=== PATIENT | male | born 1995 | race Caucasian/White ===

== ENCOUNTER 2017-05-17 11:48 | Emergency (ER) | payer OTHER, SELFPAY ==
[2017-05-17 12:29] VITALS: O2SAT 97
[2017-05-17] MEDS ORDERED: Pepcid 20 MG VIAL IV ONE ×2 (12:29→12:40)
[2017-05-17] MEDS ORDERED: Sodium Chloride 0.9% 1000 ML 1,000 ML IV STA (12:29)
[2017-05-17] MEDS ORDERED: BENADRYL 50 MG/ML IV ONE (12:29)
[2017-05-17] MEDS ORDERED: Hydromorphone 1 mg/ml Ampule IV ONE (12:29)
--- NOTE | 2017-05-17 12:38 | ERPHSYRPT ---
- History of Present Illness Time Seen by Provider: 05/17/17 12:21 Historian: patient, family (grandmother) Patient Subjective Stated Complaint: HERE FOR ABD PAIN STARTED LAST NIGHT , CHILLS THIS AM , PAIN LOWER TO MID ABD , HAD BM YESTERDAY Triage Nursing Assessment: PT ALERT,ANXIOUS,SKIN W/D.PINK, RESP EASY, PT RUBBING ABD. ABD SOFT ,TENDER TO TOUCH Physician History: CC: abd pain Hx: 21 y/o patient of Dr Addison. He had stomach cramps last night. Chills at 1AM. Worse this AM with nausea, lower abdominal pain. Did not eat breakfast as he felt sick. Normal urination. Maybe some constipation. Last BM yesterday. Hx PUD. Prior pyloric stenosis. Pain moderately severe. All: None Meds: Amoxil for dental Surg: Pyloric stenosis Social: heavy smoker, no work, no alcohol use Timing/Duration: day(s) (1) Severity of Pain-Max: moderate Severity of Pain-Current: moderate Allergies/Adverse Reactions: No Known Drug Allergies Allergy (Verified 05/17/17 12:31) Home Medications: Amoxicillin [Amoxil] 875 mg BID 05/17/17 [History] Hx Tetanus, Diphtheria Vaccination/Date Given: Yes Hx Influenza Vaccination/Date Given: No Hx Pneumococcal Vaccination/Date Given: No Immunizations Up to Date: Yes - Review of Systems Constitutional: Chills, Malaise, Weakness, No Fever Eyes: No Symptoms Ears, Nose, & Throat: No Symptoms Respiratory: No Cough Cardiac: No Chest Pain Abdominal/Gastrointestinal: Abdominal Pain, Nausea, Constipation, No Vomiting, No Diarrhea Genitourinary Symptoms: No Dysuria Musculoskeletal: No Back Pain Skin: No Rash Neurological: No Headache All Other Systems: Reviewed and Negative - Past Medical History Pertinent Past Medical History: Yes Neurological History: No Pertinent History ENT History: No Pertinent History Cardiac History: No Pertinent History Respiratory History: No Pertinent History Endocrine Medical History: No Pertinent History Musculoskeletal History: No Pertinent History GI Medical History: No Pertinent History History: No Pertinent History Psycho-Social History: Anxiety, Depression Male Reproductive Disorders: No Pertinent History Other Medical History: anger - Past Surgical History Past Surgical History: Yes Neuro Surgical History: No Pertinent History Cardiac: No Pertinent History Respiratory: No Pertinent History Gastrointestinal: No Pertinent History Genitourinary: No Pertinent History Musculoskeletal: No Pertinent History Male Surgical History: No Pertinent History Other Surgical History: pyloric stenosis - Social History Smoking Status: Current every day smoker How long have you smoked: 8 Exposure to second hand smoke: Yes Drug Use: none Patient Lives Alone: No - Nursing Vital Signs Nursing Vital Signs: Initial Vital Signs Temperature 97.8 F Temperature Source Oral Pulse Rate 102 Respiratory Rate 20 Blood Pressure [Right Arm] 126/67 Pain Intensity 5 - Physical Exam General Appearance: alert Eye Exam: PERRL/EOMI Ears, Nose, Throat Exam: normal ENT inspection, moist mucous membranes Neck Exam: normal inspection, non-tender, supple Respiratory Exam: normal breath sounds, lungs clear Cardiovascular Exam: regular rate/rhythm, No murmur Gastrointestinal/Abdomen Exam: soft, tenderness (RLQ with guarding), guarding ( RLQ), No distention, No organomegaly Male Genitalia Exam: normal genitalia, No hernia, No testicular tenderness Back Exam: normal inspection, normal range of motion Extremity Exam: normal inspection, normal range of motion Neurologic Exam: alert, oriented x 3, cooperative, community engagement specialist II-XII nml as tested, sensation nml, No motor deficits Skin Exam: warm, dry, No rash SpO2 Interpretation: normal SpO2: 97 Oxygen Delivery: Room Air - Course Nursing assessment & vital signs reviewed: Yes - CT Exams abd/pelvis CT Interpretation: Tele-radiologist Report, No appendicitis Ordered Tests: Active Orders 24 hr Category Date Time Status Clean Catch Urine Specimen STAT Care 05/17/17 12:29 Active IV Insertion STAT Care 05/17/17 12:29 Active NPO (ED) STAT Care 05/17/17 12:29 Active Consult Surgery ROUTINE Cons 05/17/17 13:23 Active ABDOMEN AND PELVIS W CONTRAST [CT] Stat Exams 05/17/17 12:29 Completed CBC W DIFF Stat Lab 05/17/17 12:40 Completed CMP Stat Lab 05/17/17 12:40 Completed LIPASE Stat Lab 05/17/17 12:40 Completed Lactic Acid Stat Lab 05/17/17 12:40 Completed Manual Differential NC Stat Lab 05/17/17 12:40 Completed UA W/RFX UR CULTURE Stat Lab 05/17/17 12:46 Completed Urine Triage Profile Stat Lab 05/17/17 12:46 Completed Medication Summary Discontinued Medications Generic Name Dose Route Start Last Admin Trade Name Freq PRN Reason Stop Dose Admin Diphenhydramine HCl 25 mg 05/17/17 12:29 05/17/17 12:44 Benadryl 50 Mg/Ml IV 05/17/17 12:30 25 mg STAT ONE Administration Diphenhydramine HCl Confirm 05/17/17 12:40 Benadryl 50 Mg/Ml Administered 05/17/17 12:41 Dose 50 mg .ROUTE .STK-MED ONE Famotidine 20 mg 05/17/17 12:29 05/17/17 12:43 Pepcid 20 Mg Vial IV 05/17/17 12:30 20 mg STAT ONE Administration Famotidine Confirm 05/17/17 12:40 Pepcid 20 Mg Vial Administered 05/17/17 12:41 Dose 20 mg IV .STK-MED ONE Hydromorphone HCl 1 mg 05/17/17 12:29 05/17/17 12:44 Hydromorphone 1 Mg/Ml Ampule IV 05/17/17 12:30 1 mg STAT ONE Administration Hydromorphone HCl Confirm 05/17/17 12:40 Hydromorphone 1 Mg/Ml Ampule Administered 05/17/17 12:41 Dose 1 mg .ROUTE .STK-MED ONE Sodium Chloride 1,000 mls @ 999 mls/hr 05/17/17 12:29 05/17/17 12:43 Sodium Chloride 0.9% 1000 Ml IV 05/17/17 13:29 999 mls/hr .Q1H1M STA Administration Sodium Chloride Confirm 05/17/17 12:41 Sodium Chloride 0.9% 1000 Ml Administered 05/17/17 12:42 Dose 1,000 mls @ ud .ROUTE .STK-MED ONE Lab/Rad Data: Laboratory Result Diagrams 05/17/17 12:40 05/17/17 12:40 Laboratory Results 05/17/17 05/17/17 05/17/17 Range/Units 12:46 12:46 12:40 WBC (4.0-10.5) K/mm3 RBC (4.1-5.6) M/mm3 Hgb (12.5-18.0) gm/dl Hct (42-50) % MCV (78-100) fl MCH (26-32) pg MCHC (32-36) g/dl RDW (11.5-14.0) % Plt Count (150-450) K/mm3 MPV (6-9.5) fl Sodium (136-145) mEq/L Potassium (3.5-5.1) mEq/L Chloride (98-107) mEq/L Carbon Dioxide (21-32) mEq/L Anion Gap (5-15) MEQ/L BUN (9-20) mg/dL Creatinine (0.55-1.30) mg/dl Estimated GFR ML/MIN Glucose (70-110) MG/DL Lactic Acid 0.9 (0.4-2.0) Calcium (8.5-10.1) mg/dL Total Bilirubin (0.2-1.0) mg/dL AST (15-37) U/L ALT (12-78) U/L Alkaline Phosphatase (46-116) U/L Serum Total Protein (6.4-8.2) gm/dL Albumin (3.4-5.0) g/dL Lipase (73-393) U/L Ur Collection Type CLEAN CATCH Urine Color YELLOW (YELLOW) Urine Appearance CLEAR (CLEAR) Urine pH 7.0 (5-6) Ur Specific Napoleon 1.005 (1.005-1.025) Urine Protein NEGATIVE (Negative) Urine Ketones NEGATIVE (NEGATIVE) Urine Blood NEGATIVE (0-5) Cristobal/ul Urine Nitrite NEGATIVE (NEGATIVE) Urine Bilirubin NEGATIVE (NEGATIVE) Urine Urobilinogen NORMAL (0-1) mg/dL Ur Leukocyte Esterase NEGATIVE (NEGATIVE) Urine Glucose NEGATIVE (NEGATIVE) mg/dL Urine Opiates Level NEG. (NEGATIVE) Ur Methadone NEG. (NEGATIVE) Urine Barbiturates NEG. (NEGATIVE) Ur Phencyclidine (PCP) NEG. (NEGATIVE) Urine Amphetamine NEG. (NEGATIVE) U Benzodiazepine Level NEG. (NEGATIVE) Urine Cocaine NEG. (NEGATIVE) Urine Marijuana (THC) NEG. (NEGATIVE) Specimen Received [id number] 05/17/17 05/17/17 Range/Units 12:40 12:40 WBC 13.4 H (4.0-10.5) K/mm3 RBC 5.13 (4.1-5.6) M/mm3 Hgb 15.2 (12.5-18.0) gm/dl Hct 44.4 (42-50) % MCV 86.5 (78-100) fl MCH 29.6 (26-32) pg MCHC 34.2 (32-36) g/dl RDW 12.4 (11.5-14.0) % Plt Count 159 (150-450) K/mm3 MPV 10.0 H (6-9.5) fl Sodium 138 (136-145) mEq/L Potassium 3.8 (3.5-5.1) mEq/L Chloride 101 (98-107) mEq/L Carbon Dioxide 26.0 (21-32) mEq/L Anion Gap 15.2 H (5-15) MEQ/L BUN 12 (9-20) mg/dL Creatinine 1.23 (0.55-1.30) mg/dl Estimated GFR > 60 ML/MIN Glucose 97 (70-110) MG/DL Lactic Acid (0.4-2.0) Calcium 10.0 (8.5-10.1) mg/dL Total Bilirubin 0.90 (0.2-1.0) mg/dL AST 13 L (15-37) U/L ALT 14 (12-78) U/L Alkaline Phosphatase 65 (46-116) U/L Serum Total Protein 7.6 (6.4-8.2) gm/dL Albumin 4.4 (3.4-5.0) g/dL Lipase 243 (73-393) U/L Ur Collection Type Urine Color (YELLOW) Urine Appearance (CLEAR) Urine pH (5-6) Ur Specific Napoleon (1.005-1.025) Urine Protein (Negative) Urine Ketones (NEGATIVE) Urine Blood (0-5) Cristobal/ul Urine Nitrite (NEGATIVE) Urine Bilirubin (NEGATIVE) Urine Urobilinogen (0-1) mg/dL Ur Leukocyte Esterase (NEGATIVE) Urine Glucose (NEGATIVE) mg/dL Urine Opiates Level (NEGATIVE) Ur Methadone (NEGATIVE) Urine Barbiturates (NEGATIVE) Ur Phencyclidine (PCP) (NEGATIVE) Urine Amphetamine (NEGATIVE) U Benzodiazepine Level (NEGATIVE) Urine Cocaine (NEGATIVE) Urine Marijuana (THC) (NEGATIVE) Specimen Received - Progress Progress Note: 05/17/17 14:17 Dr Dominguez here to see patient. 05/17/17 14:25 Pt was evaluated by Dr dominguez. He advised release with abd pain instr and return for worsened or changed pain. Will release with instr. Counseled pt/family regarding: lab results, diagnosis, need for follow-up, rad results, smoking cessation - Departure Time of Disposition: 14:25 Departure Disposition: Home Clinical Impression: Abdominal pain Qualifiers: Abdominal location: right lower quadrant Qualified Code(s): R10.31 - Right lower quadrant pain Condition: Stable Critical Care Time: No Referrals: FLO ADDISON MD [Primary Care Provider] - Instructions: Abdominal Pain-Adult Additional Instructions: ABDOMINAL PAIN 1. There are several different causes for abdominal pain, some of which may not be able to be identified on initial examination. 2. The important thing to remember is that bodily functions can change in a short period of time. If you notice any of the following symptoms, return to the emergency department or consult your doctor immediately: A. Worsening pain or no improvement in the next 12 hours. B. Increasing, severe abdominal pain C. Blood in stool D. Black stools E. Persistent vomiting F. Fever or chills or other symptoms Rx pepcid. Esmeralda diet. Follow up with Dr addison Wednesday. Return to ER for worsened, changed pain, passing blood, fever, recurrent vomiting or concerns. No driving today and stay with family. Work on quitting smoking. Prescriptions: Famotidine 20 mg [Pepcid 20 MG] 1 tab PO BID #30 tablet
[2017-05-17] MEDS ORDERED: BENADRYL 50 MG/ML ONE (12:40)
[2017-05-17] MEDS ORDERED: Hydromorphone 1 mg/ml Ampule ONE (12:40)
[2017-05-17] MEDS ORDERED: Sodium Chloride 0.9% 1000 ML 1,000 ML ONE (12:41)
[2017-05-17 12:54] LABS: Mean Cell Volume 86.5 fl (78-100); Mean Corpuscular Hemoglobin 29.6 pg (26-32); Platelet Count 159 K/mm3 (150-450); Red Blood Count 5.13 M/mm3 (4.1-5.6); Red Cell Distribution Width 12.4 % (11.5-14.0); White Blood Count 13.4 K/mm3 (4.0-10.5)
[2017-05-17 13:11] LABS: ADD URINE CULTURE? NO (NO); Bilirubin NEGATIVE (NEGATIVE); Blood NEGATIVE Ery/ul (0-5); COMPLETE URINE MICROSCOPIC? NO; Collection Type CLEAN CATCH; Glucose NEGATIVE (NEGATIVE); Leukocyte Esterase NEGATIVE (NEGATIVE)
[2017-05-17 13:13] LABS: ALBUMIN 4.4 g/dL (3.4-5.0); ALKALINE PHOSPHATASE 65 U/L (46-116); ANION GAP 15.2 MEQ/L (5-15); BLOOD UREA NITROGEN 12 mg/dL (9-20); CHLORIDE 101 mEq/L (98-107); Glucose 97 MG/DL (70-110); LIPASE 243 U/L (73-393); Potassium 3.8 mEq/L (3.5-5.1); SGOT/AST 13 U/L (15-37); SGPT/ALT 14 U/L (12-78); SODIUM 138 mEq/L (136-145); Total Protein 7.6 gm/dL (6.4-8.2)
--- NOTE | 2017-05-17 13:20 | XRAY ---
Indication: Right lower abdomen/upper pelvic pain. Multiple contiguous axial images obtained through the abdomen and pelvis using 80 cc Isovue 370 contrast only. Comparison: None Lung bases clear. Heart is not enlarged. Noncontrasted stomach and bowel loops appear nonobstructed. There is mild diffuse scattered colonic fecal debris throughout. Normal appendix. No free fluid/air. Tiny 5 mm splenic cyst. Spleen is enlarged measuring 13 cm in CC dimension. Remaining liver, gallbladder, pancreas, adrenal glands, kidneys, ureters, bladder, and aorta appear unremarkable. No pathologic retroperitoneal lymphadenopathy. Osseous structures intact. Impression: Mild fecal stasis without obstruction. Splenomegaly with [address] abdomen/pelvis with contrast exam is negative. CT DI 13.06
[2017-05-17 14:44] VITALS: BP 122/59; PULSE 70
--- NOTE | 2017-05-17 14:52 | CONS ---
CONSULT DATE: 05/17/2017 This patient is seen for one of my partners who is conditioner tender for our group today. As I was leaving the building from doing some outpatient cases the emergency room asked that I evaluate the patient. HISTORY: Kwabena Slaughter is a 21 year-old gentleman with history of cutting in the past and also history of pyloric stenosis in the past. He had some dental problems in the recent past and is supposed to be taking amoxicillin on a regular basis. He apparently took some amoxicillin and had some generalized abdominal pain radiating up to his chest. He had some pain today so he came into the emergency department. His temperature is 98F to 99F. Vital signs stable. No acute distress. He had a little bit of nausea but no vomiting. He denied any diarrhea or bloody stools. PAST MEDICAL HISTORY: He denied any chronic illnesses. MEDICATIONS: He is supposed to be on amoxicillin for shattered tooth that he will eventually have removed. PAST SURGICAL HISTORY: He had some sutures from lacerations in the past. He had pyloric stenosis when he was a child. ALLERGIES: NKDA. FAMILY HISTORY: Negative for inflammatory bowel disease or any other chronic illnesses according to the patient. REVIEW OF SYSTEMS: Twelve systems reviewed per admission assessment pertinent for as noted above. He has history of cutting in the past. History of that and prior history of pyloric stenosis. No current chest pain or palpitations other systems negative or noncontributory as above and per preadmission questionnaire. LAB DATA AND TESTS: White blood cell count 13. CT scan reviewed with the radiologist showed fecal stasis throughout the colon otherwise radiologist feels that he has a completely normal appearing appendix. No signs of any inflammation. No signs of any surrounding inflammation, no dilatation. No free fluid. No collections, abscesses or free air. PHYSICAL EXAMINATION: GENERAL: No acute distress. HEENT: Sclera nonicteric. NECK: No JVD. CHEST: Equal excursion, nonlabored breathing. CVS: Regular rate and rhythm. ABDOMEN: Very soft. He had some mild vague tenderness. He seems to be very soft. No rebound. No guarding over the right lower quadrant on my exam. He does have a well healed old pyloric incision. EXTREMITIES: No significant edema. NEURO: Alert, moving extremities grossly symmetrically. IMPRESSION: Abdominal pain unclear etiology. Whether enteritis, gastroenteritis, viral syndrome versus sensitivity to antibiotic use or symptoms worse after taking the antibiotics. Either way he has a completely normal appendix. I reviewed with the radiologist his CT. He has very soft, very benign abdominal exam on my exam currently. So at this point in time he does not clinically have evidence of acute appendicitis on CT or physical exam. I feel continue medical management. Emergency room physician will decide whether to resume empiric antibiotics or not, treat as an enteritis. Otherwise there is no emergent surgical intervention necessary at this time. I will sign off. The patient does understand there is no 100% diagnosis of appendicitis without taking it out but given the CT findings and physical exam findings, I do not feel he warrants laparoscopy at this time. He agrees at the moment, continue medical management. He does understand that should things change or have more localized pain, persistent high fever or other concerns he should return to the emergency department and may need to do repeat scan. My partners are on the next few days should he return. He will be notified of any changes that seem surgical in nature. At this time no emergent surgery at this moment, a very benign abdominal exam on my exam and CT showing normal appendix with fecal stasis throughout the colon which could also contribute to aches and pains. DISPOSITION: Per the emergency room physician.
[2017-05-17 16:11] LABS: BAND 4 % (0.0-2.0); Platelet Estimate NORMAL (NORMAL); Total Cells Counted 100
== END 2017-05-17 14:43 | disposition home or self-care (01) ==
LOC: ED 11:48
DX: R10.31 Right lower quadrant pain (principal); R68.83 Chills (without fever); R53.81 Other malaise; R53.1 Weakness; R11.0 Nausea; K59.00 Constipation, unspecified
CPT/HCPCS: 36000; 36415; 74177; 80053; 80307; 81002; 83605; 83690; 85025; 96360; 96374; 96375; 99285; J1170; J1200

== ENCOUNTER 2020-12-04 01:51 | Emergency (ER) | payer OTHER ==
[2020-12-04 02:04] VITALS: O2SAT 98
--- NOTE | 2020-12-04 03:06 | ERPHSYRPT ---
- History of Present Illness Time Seen by Provider: 12/04/20 01:55 Source: patient Exam Limitations: no limitations Patient Subjective Stated Complaint: pt arrived via ambulance intoxicated Triage Nursing Assessment: pt arrived via ambulance intoxicated. Pt started drinking around 2300. Pt had been talking to his girlfriend on the phone and pt states, "I was in a good mood but then started drinking". Pt's uncle informed us that he's not typically a drinker. Pt called his girlfriend and informed her that she needed to call an ambulance. When the polisher apprentice and EMS arrived, pt was passed out naked in the shower and had defecated. Pt denies any suicidal or homicidal ideation. Physician History: Patient is a 25-year-old male presents to our ED for evaluation status post alcohol intoxication. Patient states he was in a good mood talking to his girlfriend over the phone. Patient decided to drink. Patient stated he had not had alcohol in a long while. Patient is usually not a drinker. Patient began to drink excessively and started to feel drunk. Patient told his girlfriend to call 911. Upon EMS arrival patient was found on the ground. He was naked defecated. Patient's uncle is pharmacy technician assistant fire assistant. He arrived as well. Patient was initially combative and violent. Patient was then calm and cooperative. Upon arrival patient was calm and cooperative. Patient denied homicidal suicidal ideation. Patient denied pain. No trauma. No nausea or vomiting. No diarrhea. Patient conversant. Patient alert and oriented x3. Patient denied ingesting toxic substances. Patient voices no complaints or concerns. Timing/Duration: today Severity: moderate Modifying Factors: Improves With: nothing Associated Symptoms: denies symptoms, No nausea, No vomiting, No abdominal pain, No shortness of breath, No heartburn, No diaphoresis, No cough, No chills, No chest pain, No fever, No headaches, No loss of appetite, No malaise Allergies/Adverse Reactions: No Known Drug Allergies Allergy (Verified 12/04/20 02:15) Home Medications: No Reportable Medications [No Reported Medications] 12/04/20 [History] Hx Tetanus, Diphtheria Vaccination/Date Given: Yes Hx Influenza Vaccination/Date Given: No Hx Pneumococcal Vaccination/Date Given: No Immunizations Up to Date: Yes Travel Risk - International Travel Have you traveled outside of the country in past 3 weeks: No - Coronavirus Screening Are you exhibiting any of the following symptoms?: No Close contact with a COVID-19 positive Pt in past 14-21 Days: No - Review of Systems Constitutional: No Symptoms, No Fever, No Chills Eyes: No Symptoms Ears, Nose, & Throat: No Symptoms Respiratory: No Symptoms, No Cough, No Dyspnea Cardiac: No Symptoms, No Chest Pain, No Edema, No Syncope Abdominal/Gastrointestinal: No Symptoms, No Abdominal Pain, No Nausea, No Vomiting, No Diarrhea Genitourinary Symptoms: No Symptoms, No Dysuria Musculoskeletal: No Symptoms, No Back Pain, No Neck Pain Skin: No Symptoms, No Rash Neurological: No Symptoms, No Dizziness, No Focal Weakness, No Sensory Changes Psychological: No Symptoms Endocrine: No Symptoms Hematologic/Lymphatic: No Symptoms Immunological/Allergic: No Symptoms All Other Systems: Reviewed and Negative - Past Medical History Pertinent Past Medical History: Yes Neurological History: No Pertinent History ENT History: No Pertinent History Cardiac History: No Pertinent History Respiratory History: No Pertinent History Endocrine Medical History: No Pertinent History Musculoskeletal History: No Pertinent History GI Medical History: No Pertinent History History: No Pertinent History Psycho-Social History: Anxiety, Depression, Other Male Reproductive Disorders: No Pertinent History Other Medical History: anger. suicidal ideation - Past Surgical History Past Surgical History: Yes Neuro Surgical History: No Pertinent History Cardiac: No Pertinent History Respiratory: No Pertinent History Gastrointestinal: No Pertinent History Genitourinary: No Pertinent History Musculoskeletal: No Pertinent History Male Surgical History: No Pertinent History Other Surgical History: pyloric stenosis - Social History Smoking Status: Current every day smoker How long have you smoked: 12 yrs Exposure to second hand smoke: Yes Drug Use: none Patient Lives Alone: No - Nursing Vital Signs Nursing Vital Signs: Initial Vital Signs Temperature 97.0 F 12/04/20 01:52 Pulse Rate 85 12/04/20 01:52 Respiratory Rate 18 12/04/20 01:52 Blood Pressure 129/76 12/04/20 01:52 O2 Sat by Pulse Oximetry 98 12/04/20 01:52 Pain Scale Pain Intensity 0 - Physical Exam General Appearance: no apparent distress, alert Eye Exam: PERRL/EOMI, eyes nml inspection Ears, Nose, Throat Exam: normal ENT inspection, TMs normal, pharynx normal, moist mucous membranes Neck Exam: normal inspection, non-tender, supple, full range of motion Respiratory Exam: normal breath sounds, lungs clear, No respiratory distress Cardiovascular Exam: regular rate/rhythm, normal heart sounds, normal peripheral pulses Gastrointestinal/Abdomen Exam: soft, normal bowel sounds, No tenderness, No mass Back Exam: normal inspection, normal range of motion, No CVA tenderness, No vertebral tenderness Extremity Exam: normal inspection, normal range of motion, pelvis stable Neurologic Exam: alert, oriented x 3, cooperative, normal mood/affect, nml cerebellar function, nml station & gait, sensation nml, intoxicated appearance, No motor deficits, No sensory deficit, No confusion, No uncooperative Skin Exam: normal color, warm, dry, No rash Lymphatic Exam: No adenopathy SpO2 Interpretation: normal SpO2: 98 O2 Delivery: Room Air - Course Nursing assessment & vital signs reviewed: Yes - Progress Progress: improved Progress Note: 12/04/20 03:29 Patient observed for approximately an hour and a half. Patient then decided he wanted to leave. We contacted patient's uncle Trae will pick patient up. Uncle Trae will stay with patient throughout the night. Patient denies homicidal suicidal ideation. Physical exam within normal limits. No signs of trauma. Vitals within normal limits. Patient conversant ambulatory and displaying appropriate behavior. Patient voices no complaints or concerns. Patient states he is asymptomatic. Will discharge to Trae's custody. Counseled pt/family regarding: diagnosis, need for follow-up - Departure Departure Disposition: Home Clinical Impression: Alcohol intoxication Condition: Stable Critical Care Time: No Referrals: FLO MAYNARD MD [Primary Care Provider] - Instructions: Alcohol Abuse and Alcoholism (DC) Additional Instructions: Discharge/Care Plan ANILAAMIE RITTER was seen on 12/04/20 in the Emergency Room. The patient was counseled regarding Diagnosis,Lab results, Imaging studies, need for follow up and when to return to the Emergency Room. Prescriptions given: Discharge Note I have spoken with the patient and/or caregivers. I have explained the patient's condition, diagnosis and treatment plan based on the information available to me at this time. I have answered the patient's and/or caregiver's questions and addressed any concerns. The patient and/or caregivers have as good understanding of the patient's diagnosis, condition and treatment plan as can be expected at this point. The vital signs have been stable. The patient's condition is stable and appropriate for discharge from the emergency department. The patient will pursue further outpatient evaluation with the primary care physician or other designated or consulting physician as outlined in the discharge instructions. The patient and/or caregivers are agreeable to this plan of care and follow-up instructions have been explained in detail. The patient and/or caregivers have received these instruction. The patient/and or caregivers are aware that any significant change in condition or worsening of symptoms should prompt an immediate return to this or the closest emergency department or call 911.
[2020-12-04 03:18] VITALS: BP 119/80; PULSE 70
== END 2020-12-04 03:27 | disposition home or self-care (01) ==
LOC: ED 01:51
DX: F10.120 Alcohol abuse with intoxication, uncomplicated (principal)
CPT/HCPCS: 99283